=== PATIENT | female | born 1990 | race African-American/Black ===

== ENCOUNTER 2017-08-25 17:31 | Emergency (ER) | payer OTHER ==
[~2017-08-25] VITALS: Ht 149.9 cm; Wt 66.2 kg
[2017-08-25 19:30] LABS: POTASSIUM 3.4 mmol/L (3.6-5.2); SODIUM 135 mmol/L (136-145)
[2017-08-25 19:33] LABS: PLATELET COUNT 140 K/uL (152-353)
[2017-08-25 23:36] VITALS: BP 115/65; TEMP 98.9
== END 2017-08-25 23:40 | disposition home or self-care (01) ==
LOC: ED 17:31
DX: N85.8 Other specified noninflammatory disorders of uterus (principal); R18.8 Other ascites
CPT/HCPCS: 36415; 80053; 81000; 81025; 85027; 96372; 96374; 99284; J0696; J2405; Q9963